=== PATIENT | female | born 1950 | race Caucasian/White ===

== ENCOUNTER 2016-09-30 07:09 | Day surgery (SDC) | payer BC ==
[2016-09-28 17:36] LABS: BASOPHILS 0.2 %; BASOPHILS ABSOLUTE 0.02 10/3/uL (0.0-0.16); EOSINOPHILS 1.5 %; EOSINOPHILS ABSOLUTE 0.12 10/3/uL (0.0-0.53); HEMOGLOBIN 10.5 g/dL (12.0-16.0); IMMATURE GRANULOCYTES 0.4 %; IMMATURE GRANULOCYTES ABSOLUTE 0.03 10/3/uL (0.0-0.11); LYMPHOCYTES 26.2 %; LYMPHOCYTES ABSOLUTE 2.12 10/3/uL (0.67-4.30); MEAN CORPUS HGB CONC 31.3 g/dL (32.0-36.0); MEAN CORPUSCULAR HEMOGLOB 25.5 pg (26.0-34.0); MONOCYTES 5.8 %; MONOCYTES ABSOLUTE 0.47 10/3/uL (0.21-1.20); NEUTROPHILS 65.9 %; NEUTROPHILS ABSOLUTE 5.33 10/3/uL (2.02-8.40); RED CELL COUNT 4.12 10/6/uL (4.0-5.6); WHITE BLOOD CELLS 8.1 10/3/uL (4.5-10.5)
[2016-09-28 17:43] LABS: HEMATOCRIT 33.6 % (36.0-48.0); MANUAL DIFF NO %; MEAN CORPUSCULAR VOLUME 81.6 fL (80-100); PLATELET COUNT 350 10/3/uL (150-400)
[2016-09-28 18:13] LABS: A/G RATIO 0.9 (0.7-1.9); ALBUMIN 3.1 G/DL (3.5-5.0); ALKALINE PHOSPHATASE 104 U/L (45-117); BUN (BLOOD UREA NITROGEN) 16 MG/DL (6-23); CALCIUM, SERUM 10.1 MG/DL (8.5-10.4); CHLORIDE, SERUM 105 MMOL/L (96-112); CREATININE 0.59 MG/DL (0.55-1.02); GFR AFRICAN AMERICAN 112 ML/MIN (>=60); GFR NON AFRICAN AMERICAN 97 ML/MIN (>=60); GLOBULIN 3.6 G/DL (2.5-4.1); GLUCOSE, SERUM 108 MG/DL (60-99); POTASSIUM, SERUM 4.3 MMOL/L (3.5-5.3); SGOT(AST) 13 U/L (5-40); SGPT(ALT) 24 U/L (5-65); SODIUM, SERUM 142 MMOL/L (135-148); TOTAL BILIRUBIN 0.1 MG/DL (0-1.2); TOTAL PROTEIN 6.7 G/DL (6.0-8.5)
[2016-09-28 18:14] LABS: CO2 (CARBON DIOXIDE) 28 MMOL/L (24-34)
--- NOTE | ~2016-09-30 | PREOPHP ---
PreOp History and Physical [address] [place]. [address] NAME: KOREY ROSA : [birth year] STATUS : PRE [facility] PAT#: [id number] AGE: 66 ADM/REG DATE : MR#: [id number] REPORT SERV DATE: 09/29/16 DICTATED BY: CONSTANCE PETER III DATE: 09/23/16 REPORT STATUS : Draft TRANSCRIBED BY: MODHeidi DATE: 09/23/16 HISTORY OF PRESENT ILLNESS: This 66-year-old female comes to the operating room for laparoscopic cholecystectomy, possible laparotomy, for symptomatic cholelithiasis and cholecystitis. The patient complains of intermittent episodes of upper abdominal pain. The patient has gallstones, felt to have symptomatic cholelithiasis and cholecystitis. The patient comes to the operating room now for laparoscopic cholecystectomy, possible laparotomy. PAST MEDICAL HISTORY: 1. Hypertension. 2. Non-insulin dependent diabetes mellitus. 3. History of hiatal hernia. ALLERGIES: PENICILLIN. MEDICATIONS: Benazepril, Pepcid, metformin, iron, and vitamins. FAMILY HISTORY: Positive for breast cancer and diabetes. SOCIAL HISTORY: No history of tobacco or alcohol use. REVIEW OF SYSTEMS: The patient complains of fatigue, kidney stones, and joint pain. A 14-point review of systems otherwise unremarkable. PHYSICAL EXAMINATION: GENERAL: Reveals an obese female, in no acute distress. She is alert oriented x3. VITAL SIGNS: Blood pressure 156/78, pulse 89, temperature 96.9. HEENT: Unremarkable. NEUROLOGIC: Cranial nerves II through XII are normal. LUNGS: Clear. CARDIAC: Normal. ABDOMEN: Soft, nontender. She has a small umbilical hernia which is reducible. LABORATORY DATA: Gallbladder ultrasound confirms gallstones. ASSESSMENT: 1. A 66-year-old female with symptomatic cholelithiasis and cholecystitis. 2. Obesity. 3. Hypertension. 4. Non-insulin dependent diabetes mellitus. PLAN: The patient comes to the operating room now for laparoscopic cholecystectomy, possible laparotomy. This procedure, the risks benefits and alternatives, including not limited to the risk for bleeding, infection, common bile duct injury, bile leak, retained common bile stone, enterotomy, injury to abdominal structure, definite possible need for laparotomy with PreOp History and Physical [address] [place]. [address] NAME: KOREY ROSA DOB: [birth year] STATUS : PRE [facility] PAT#: [id number] AGE: 66 ADM/REG DATE : MR#: [id number] REPORT SERV DATE: 09/29/16 DICTATED BY: CONSTANCE PETER III DATE: 09/23/16 REPORT STATUS : Draft TRANSCRIBED BY: YUVAL DATE: 09/23/16 possible persistence of her symptoms unrelieved by surgery, possibility of postoperative diarrhea or incisional hernia, and unforeseen complications including deep venous thrombosis, pulmonary embolus, myocardial infarction, stroke, pneumonia, and , have been fully and completely explained to the patient prior to surgery. The fact that this is a major operation with risk for major morbidity and mortality and no guarantee for relief of her symptoms were explained. It should be noted the patient also has umbilical hernia, this will be repaired as well. The risks associated with this including enterotomy and possibly recurrence of the hernia has been explained. The patient's questions have been answered. She clearly understands the risks and agrees to surgery as planned. ADDENDUM: Ms. Rosa has a symptomatic umbilical hernia. At the time of her laparoscopic cholecystectomy, possible laparotomy, this umbilical hernia will also be repaired. This procedure, umbilical hernia repair, the risks, benefits, and alternatives, including not limited to the risk for bleeding, infection, enterotomy, injury to any abdominal structure, postop small bowel obstruction, ileus, recurrence of the hernia, seroma formation, hematoma formation, and unforeseen complications including deep venous thrombosis, pulmonary embolus, myocardial infarction, stroke, pneumonia, and , have been explained to the patient in addition to the risks as previously outlined regarding the cholecystectomy. The expected length of recovery has been explained. The patient's questions have been answered. She understands the risks and agrees to the surgery as planned. DEMETRICE/YUVAL Constance Peter III, M.D. / [id number] / [id number]
--- NOTE | ~2016-09-30 | OP ---
Record Of Operation [facility] [address] [place]. [address] NAME: KOREY ROSA : 54 STATUS : REG [facility] PAT#: [id number] AGE: 66 ADM/REG DATE : 09/30/16 MR#: [id number] REPORT SERV DATE: 09/30/16 DICTATED BY: CONSTANCE LOMAS III DATE: 09/30/16 REPORT STATUS : Draft TRANSCRIBED BY: MODL DATE: 09/30/16 DATE OF PROCEDURE: 09/30/2016 PREOPERATIVE DIAGNOSIS: Symptomatic cholelithiasis and cholecystitis with umbilical hernia. POSTOPERATIVE DIAGNOSES: Symptomatic cholelithiasis and cholecystitis with umbilical hernia, incarcerated umbilical hernia. PROCEDURE: Laparoscopic cholecystectomy with repair of incarcerated umbilical hernia. SURGEON: Constance Lomas M.D. ANESTHESIA: General with intubation. COMPLICATIONS: None. ESTIMATED BLOOD LOSS: Less than 30 mL. SPECIMENS: Gallbladder. DRAINS: None. LAP AND SPONGE COUNT: Correct x3. BRIEF HISTORY: This 66-year-old female presented with evidence for symptomatic cholelithiasis, cholecystitis, and a symptomatic umbilical hernia. It was felt that laparoscopic cholecystectomy, possible laparotomy, with repair of her umbilical hernia was indicated. These procedures, the risks, benefits, and alternatives, including not limited to the risk for bleeding, infection, common bile duct injury, bile leak, retained common bile stone, enterotomy, or injury to any abdominal structure, the definite possible need for laparotomy, possible persistence of her symptoms unrelieved by surgery, possibility of postoperative diarrhea or incisional hernia, recurrence of her umbilical hernia, and unforeseen complications including deep venous thrombosis, pulmonary embolus, myocardial infarction, stroke, pneumonia, and , were fully and completely explained to the patient and family at length prior to surgery. The fact that this was a major operation with risk for major morbidity and mortality, no guarantee for relief of her symptoms were explained to them. The expected length of recovery with both open and laparoscopic procedures was explained. The option of nonoperative treatment was offered, but declined. The patient's questions were answered. She understood the risks and agreed to the surgery as planned. DESCRIPTION OF PROCEDURE: After being properly identified and after discussing the risks of surgery with the patient and family again in the preoperative area, and after identifying the hernia with her in the preoperative area, the patient was taken to the operating room and placed in the supine position on the operating room table. General anesthesia was administered. She was intubated without difficulty. The abdomen was prepped and draped sterilely in the usual fashion. After an appropriate "time-out" per [facility] standards, a Record Of Operation [facility] [address] [place]. [address] NAME: KOREY ROSA : 54 STATUS : REG [facility] PAT#: [id number] AGE: 66 ADM/REG DATE : 09/30/16 MR#: [id number] REPORT SERV DATE: 09/30/16 DICTATED BY: CONSTANCE LOMAS III DATE: 09/30/16 REPORT STATUS : Draft TRANSCRIBED BY: MODL DATE: 09/30/16 small transverse incision was made along the inferior border of the navel. The skin and fascia on either side of this were elevated with towel clips. A Veress needle was placed through the incision into the peritoneal cavity. Correct position of the needle in the peritoneal cavity was confirmed by the hanging drop test. The abdominal cavity was then insufflated to about 13 mmHg with carbon dioxide. Correct position of the air in the peritoneal cavity was confirmed by palpation. The Veress needle was removed and replaced with 10 mm trocar. The laparoscope was placed through this. The patient was placed in a reverse Trendelenburg position and to her left. A second 10 mm trocar was placed just below the xiphoid process, to the right of falciform ligament, under direct vision with the laparoscope. Two 5 mm trocars were placed along the right subcostal margin, one in the midaxillary line and the other in the midclavicular line. These were also placed under direct vision with the laparoscope. The upper abdomen was inspected. The gallbladder appeared to be chronically diseased. The gallbladder duran were thickened and inflamed and there were adhesions between the gallbladder and omentum consistent with chronic cholecystitis. The liver and remainder of the upper abdomen were otherwise unremarkable as far as we could determine through the laparoscope. The appropriate instruments were placed through the trocars. Using sharp dissection, the adhesions between the gallbladder and the omentum were carefully divided. The gallbladder was then grasped and the infundibulum of the gallbladder was retracted laterally and inferiorly so as to expose the triangle of Calot. Using sharp dissection, the cystic duct was carefully and meticulously defined proximally and distally. The cystic duct was fairly long. The junction of the cystic duct where the common bile duct was appreciated was not skeletonized. The cystic artery was similarly defined proximally and distally. The fibrous and fatty tissue between these structures was divided so as to clearly identify the triangle of Calot and critical view of safety. The lower portion of the gallbladder was dissected away from the liver so as to clearly identify the critical angle. Once these structures were clearly defined, the cystic duct was clipped with two clips on the common bile duct side and one on the gallbladder side, all placed as close to the gallbladder as possible, taking care not encroach upon or injure the common bile duct in any way. The cystic duct was then divided between these clips as close to the gallbladder as possible. We elected not to perform a cholangiogram because there was no preoperative or intraoperative evidence for biliary dilatation because the patient's preoperative liver enzymes were normal and because her biliary anatomy was clearly defined. The cystic artery was then similarly clipped and divided as close to the gallbladder as possible. Using the spatula and the cautery, the gallbladder was carefully dissected from the liver bed. This went very well. Before the gallbladder was completely removed, the gallbladder bed and portal areas were irrigated numerous times with saline. The saline was aspirated dry. This process was repeated several times until hemostasis was meticulously and thoroughly assured in all areas. It was also assured that the clips and the portal area were in good position. There was no extravasation of bile from any accessory bile duct. Once this was assured, the gallbladder and Endopouch were brought out through the infraumbilical incision and placed in the laparoscope through the subxiphoid trocar. The lateral two trocars were removed, and these three lower trocar sites were inspected on the underside for hemostasis with the laparoscope. Finally, the subxiphoid trocar was removed under direct vision with the laparoscope to assure hemostasis in this incision. Record Of Operation [facility] [address] [facility] [place]. [address] NAME: KOREY ROSA : 54 STATUS : REG [facility]#: [id number] AGE: 66 ADM/REG DATE : 09/30/16 MR#: [id number] REPORT SERV DATE: 03/08/17 DICTATED BY: CONSTANCE LOMAS III DATE: 09/30/16 REPORT STATUS : Draft TRANSCRIBED BY: YUVAL DATE: 09/30/16 We then turned our attention to the umbilical hernia. Using sharp dissection, the navel was raised superiorly. We continued our dissection down to the fascial defect which was about 1 cm in size. Using sharp dissection, the skin and subcutaneous tissue around the defect anteriorly was fully mobilized. The underside of the fascia was inspected and palpated to be certain that there was no bowel beneath this. Hemostasis was assured. The fascial edges were then reapproximated with interrupted 0 Prolene sutures. The fascia came together nicely with no tension and it was felt that mesh repair was not indicated. Hemostasis was assured. The subcutaneous tissue was closed with running 3-0 chromic suture. The skin incisions were all closed with running subcuticular 4-0 Monocryl stitches injected with 0.5% Marcaine. Dressings were applied. Anesthesia was reversed. The patient was taken to the recovery room in stable condition. She tolerated the procedure well. Her family was informed of the results of surgery. The patient will be discharged when stable and comfortable and able to void and ambulate. Her family was advised that she should remain on liquid diet today and advance this as tolerated to a regular diet tomorrow that she should keep wounds clean and dry for 48 hours and that she should not drive for at least three to four days after surgery or while using narcotics and that she should resume her usual medications. They are advised she should not perform any heavy lifting for five to six weeks. She was asked to return in two weeks for followup or sooner if any nausea, vomiting, fever, chills, wound drainage, abdominal pain, weakness, or other problems prior that time. Her family was advised she should monitor her glucose carefully for the next several days. She was given a prescription for Percocet 7.5 one t.i.d., #12, as needed for pain, which she was advised not to use while driving. DEMETRICE/YUVAL Contsance Lomas III, M.D. / [id number] CC: Tyler Mitchell III, M.D.
[~2016-09-30 07:09] MED LIST: BENAZEPRIL PO; COREG3 PO; GLUCPH PO; HYGROTON 25 MG25 MG PO; IBU-200200 MG PO; IRON325 MG PO; LOTE10 PO; LOTE20 PO; LOTE40 PO; MULTIPLE VIT PO; NEXIUM PO; NEXIUM20 M1 PO; NEXIUM40 PO; PEP20 PO; PRAVAC PO; SANCTURA PO; SANCTURA XR60 MG PO; VESICARE PO; VESICARE10 MG PO; VITD PO
[2016-09-30 12:46] LABS: HEMATOCRIT 35.3 % (36.0-48.0); HEMOGLOBIN 11.1 g/dL (12.0-16.0)
== END 2016-09-30 14:10 | disposition home or self-care (01) ==
LOC: SDC 07:09
PROVIDERS: Surgery
PROC: 0FT44ZZ Resection of Gallbladder, Percutaneous Endoscopic Approach (ICD-10-PCS; principal; 2016-09-30 07:45)
PROC: 0WQF0ZZ Repair Abdominal Wall, Open Approach (ICD-10-PCS; 2016-09-30 07:45)
DX: K80.10 Calculus of gallbladder with chronic cholecystitis without obstruction (principal); K42.0 Umbilical hernia with obstruction, without gangrene; I10 Essential (primary) hypertension; E11.9 Type 2 diabetes mellitus without complications; M19.90 Unspecified osteoarthritis, unspecified site; G47.30 Sleep apnea, unspecified; E66.01 Morbid (severe) obesity due to excess calories; K21.9 Gastro-esophageal reflux disease without esophagitis; N20.0 Calculus of kidney; Z88.0 Allergy status to penicillin; D64.9 Anemia, unspecified; Z98.41 Cataract extraction status, right eye; Z98.42 Cataract extraction status, left eye
CPT/HCPCS: 71020; 80053; 82962; 85014; 85018; 85025; 87641; 88304; 93005; A9270-GY; J0690; J2250; J2405; J2710; J3010